=== PATIENT | male | born 1925 | race Caucasian/White ===

== ENCOUNTER 2016-05-19 11:24 | Emergency (ER) | payer MEDICARE, OTHER | END 2016-05-19 15:42 | disposition home or self-care (01) | LOC: ER 11:24 | DX: R53.83 Other fatigue (principal); R42 Dizziness and giddiness; C61 Malignant neoplasm of prostate; Z79.899 Other long term (current) drug therapy; Z87.891 Personal history of nicotine dependence; Z95.1 Presence of aortocoronary bypass graft; I50.9 Heart failure, unspecified; I48.91 Unspecified atrial fibrillation; Z85.830 Personal history of malignant neoplasm of bone | CPT/HCPCS: 36415; 70450; 71010; 80053; 81003; 82553; 83605; 84484; 85025; 85610; 85730; 87040; 93005 ==